=== PATIENT | female | born 1985 | race Caucasian/White ===

== ENCOUNTER 2023-02-08 09:05 | Outpatient (CLI) | payer OTHER | END 2023-02-08 09:07 | disposition home or self-care (01) | LOC: SONOGRAMA 09:05 | PROVIDERS: ATTEND Pathology Anatomic Pathology & Clinical Pathology | DX: D24.2 Benign neoplasm of left breast (principal) ==

== ENCOUNTER 2024-09-08 06:05 | Day surgery (SDC) | payer OTHER ==
[2024-08-29 10:17] VITALS: BP 113/56
[~2024-09-08 06:05] MED LIST: TAMOXIFEN CITRA20 MG PO
[2024-09-08] MEDS ORDERED: MORPHINE SULFATE 4 MG/ML VIAL IV PRN (09:45)
[2024-09-08] MEDS ORDERED: ONDANSETRON HCL 2 MG/ML VIAL IV PRN (09:45)
[2024-09-08] MEDS ORDERED: GENTAMICIN SULFATE 40 MG/ML VIAL IR ONE (10:00)
[2024-09-08] MEDS ORDERED: POVIDONE-IODINE 118 ML BOTT TOP ONE (10:00)
[2024-09-08] MEDS ORDERED: POVIDONE-IODINE SCRUB 118 ML BOTT TOP ONE (10:00)
[2024-09-08] MEDS ORDERED: BUPIVACAINE HCL 30 ML VIAL IJ ONE (10:00)
[2024-09-08] MEDS ORDERED: CLINDAMYCIN PHOSPHATE 150 MG/ML (900mg) IV ONE (10:00)
[2024-09-08] MEDS ORDERED: CEFAZOLIN SODIUM 1,000 MG VIAL IV ONE (10:00)
== END 2024-09-08 12:00 | disposition home or self-care (01) ==
LOC: CIR.AMB 06:05
PROVIDERS: ATTEND Plastic Surgery
DX: D05.11 Intraductal carcinoma in situ of right breast (principal); Z90.11 Acquired absence of right breast and nipple